=== PATIENT | female | born 1990 | race African-American/Black ===

== ENCOUNTER 2016-06-05 22:21 | Emergency (ER) | payer OTHER ==
[~2016-06-05] VITALS: Ht 167.6 cm; Wt 75.3 kg
[2016-06-05 23:17] LABS: CHLORIDE 106 mEq/L (99-109); POTASSIUM 3.1 mEq/L (3.7-5.4); SODIUM 136 mEq/L (136-147)
[2016-06-05 23:19] LABS: GLUCOSE 119 mg/dL (70-99)
[2016-06-05 23:20] LABS: ANION GAP 8 MEQ/L (2-14); D-DIMER ELISA 1.02 mg/L FEU (< 0.57)
[2016-06-05 23:21] LABS: TOTAL BILIRUBIN 0.6 mg/dL (0.0-1.0)
[2016-06-05 23:22] LABS: ALKALINE PHOSPHATASE 49 IU/L (3-129)
[2016-06-05 23:24] LABS: UREA NITROGEN (BUN) 8 mg/dL (9-23)
[2016-06-05 23:26] LABS: LIPASE 79 U/L (1.0-51.0)
[2016-06-05 23:47] LABS: EOSINOPHIL (%) 0.4 % (0-5); EOSINOPHIL COUNT 0.1 K/uL (0-0.3); HEMATOCRIT 32.6 % (36.0-46.0); IMMATURE GRANULOCYTE (%) 0.4 % (0.0-0.7); IMMATURE GRANULOCYTE COUNT 0.5 K/uL; LYMPHOCYTE COUNT 3.2 K/uL (1.0-2.8); MCH 31.7 PG (29.0-34.0); MCHC 38.7 G/DL (30.0-36.0); MCV 81.9 FL (83-99); MEAN PLAT.VOLUME 9.4 uM^3 (9.5-12.4); MONOCYTE COUNT 0.7 K/uL (0-0.8); NEUTROPHIL (%) 71.6 % (45-76); NEUTROPHIL COUNT 10.2 K/uL (1.8-6.4); PLATELET COUNT 260 K/uL (156-360); RBC DIS.WIDTH-CV 12.5 % (11.8-14.6); RBC DIS.WIDTH-SD 35.9 % (39-53); RED BLOOD COUNT 3.98 M/uL (3.80-5.20); WHITE BLOOD COUNT 14.2 K/uL (4.1-10.2)
[2016-06-05 23:50] LABS: GFR ESTIMATE (CALCULATED) > 59 mL/min/; QUANTITATIVE HCG 19948.2 MIU/ML
[2016-06-06] MEDS ORDERED: ZITHROMAX250 MG PO (02:07)
[2016-06-06 02:31] VITALS: BP 121/72
== END 2016-06-06 02:31 | disposition home or self-care (01) ==
LOC: EME 22:21
PROVIDERS: Emergency Medicine
DX: J90 Pleural effusion, not elsewhere classified (principal); J06.9 Acute upper respiratory infection, unspecified; Z33.1 Pregnant state, incidental
CPT/HCPCS: 71010; 71275; 76801; 80053; 83690; 84702; 85025; 85379; 93005; 94664; 99281; 99285; J0696; J7040; J7050